=== PATIENT | female | born 1955 | race Caucasian/White ===

== ENCOUNTER 2018-11-03 13:54 | Emergency (ER) | payer OTHER ==
[~2018-11-03] VITALS: Ht 162.6 cm; Wt 63.5 kg
[2018-11-03] MEDS ORDERED: ALOE VERA237 ML PO (14:04)
[2018-11-03 14:45] VITALS: BP 110/75
== END 2018-11-03 14:45 | disposition home or self-care (01) ==
LOC: M.ERS 13:54
DX: S60.552A Superficial foreign body of left hand, initial encounter (principal); Z88.2 Allergy status to sulfonamides; Y29.XXXA Contact with blunt object, undetermined intent, initial encounter; Y93.89 Activity, other specified; Y92.89 Other specified places as the place of occurrence of the external cause; Y99.8 Other external cause status